=== PATIENT | female | born 1950 | race Caucasian/White ===

== ENCOUNTER 2023-08-07 09:56 | Outpatient (CLI) | payer MEDICARE, OTHER, SELFPAY ==
--- NOTE | 2023-08-07 | ECG_ITS ---
Measurements Intervals [place] Rate: 54 P: 39 DC: 187 QRS: -17 QRSD: 89 T: 6 QT: 399 QTc: 381 Interpretive Statements SINUS BRADYCARDIA LOW QRS VOLTAGE IN PRECORDIAL LEADS INFERIOR INFARCT, AGE INDETERMINATE ABNORMAL ECG NO PREVIOUS ECG AVAILABLE FOR COMPARISON Electronically Signed On 08-07-2023 11:22:15 CDT by Sumit Braswell D.O.
[2023-08-07 10:45] LABS: Anion Gap 9 mmol/L (8-16); Blood Urea Nitrogen 26 mg/dL (7-17); Calcium 9.2 mg/dL (8.4-10.2); Carbon Dioxide 26 mmol/L (22-30); Chloride 102 mmol/L (98-107); Estimated Glomerular Filt Rate > 60; Glucose 149 mg/dL (65-110); Potassium 4.6 mmol/L (3.4-5.0); Sodium 137 mmol/L (137-145)
== END 2023-08-07 09:57 | disposition home or self-care (01) ==
PROVIDERS: PCP Orthopaedic Surgery; Visit Provider Orthopaedic Surgery
DX: M25.561 Pain in right knee (principal)
CPT/HCPCS: 36415; 80048; 93005

== ENCOUNTER 2025-07-30 09:34 | Outpatient (CLI) | payer MEDICARE, SELFPAY ==
--- OUTSIDE RECORDS SUMMARY | 2025-07-30 10:15 | XMS_ITS | Clinical Summary ---
Author Organization [facility] [employer] Address [address] [facility] [place] [address] Care Team Providers Care Corporate Director Name Role Phone Dusty Dunham MD Primary Care Provider [phone] Source Comments [facility],non-owned Affiliates and Associated Physician Practices is amultiple site organization consisting of ambulatory clinics and hospital sitesin [place], [place], [place] and [place]. This disclosure is being madepursuant to the Care Everywhere program and may not contain all information available regarding this patient. Last updated 18.[facility] Allergies Active Allergy Reactions Criticality Noted Date Comments Iodine Rash Medium 12/31/2018 Penicillins Rash Medium 12/31/2018 Medications * Be aware that medications may not be up to date on this document. Alwaysverify current medications with the patient. metoprolol tartrate (LOPRESSOR) 100 MG tablet metoprolol tartrate 100 mg tablet TAKE 1 TABLET BY MOUTH EVERY DAY DIRECTED Active lisinopril (PRINIVIL; ZESTRIL) 20 MG tablet Take 1 (one) tablet by mouth once daily 2 Active metFORMIN (GLUCOPHAGE) 1000 MG tablet metformin 1,000 mg tablet TAKE 1 TABLET BY MOUTH TWICE A DAY Active aspirin EC (ECOTRIN) 81 MG tablet Take 1 (one) tablet by mouth once daily Active Calcium Carb-Cholecalci ferol 500-400 MG-UNIT Take 1 tablet by mouth once daily Active multivitamins (ONE A DAY) capsule Take 1 (one) capsule by mouth once daily Active Loratadine 10 MG Active atorvastatin (Lipitor) 10 MG tablet Take 1 (one) tablet by mouth once daily 3 Active olmesartan-hydr oCHLOROthiazide (Benicar HCT) 40-25 MG tablet Take 1 (one) tablet by mouth once daily Active amLODIPine (Norvasc) 5 MG tablet Take 1 (one) tablet by mouth once daily Active tacrolimus (Protopic) 0.1 % ointment Apply to eyelids two times daily. 30 days supply. 60 g 1 5 Active Active Problems No known active problems Encounters Date Type Department Care Team Description 06/17/2025 Telephone [facility] - Dermatology [address] [place] [address] None, Physician Medication Issue from Last 3 Months Immunizations Immunization Administration Dates Next Due Covid Moderna primary monova lent 12+ yr 0.5mL 01/18/2021 Covid Pfizer primary monoval ent 12+ yr 0.3mL Purple cap 01/18/2021,12/16/2020 INFLUENZA VACCINE 08/02/2021,07/29/2018 INFLUENZA VACCINE, HIGH-DOSE , QUADR. (FLUZONE HIGH-DOSE QUADRIVALENT; 65Y+), 0.7 ML (HD-IIV4) 07/19/2020,08/23/2019,07/31/2014,2011 MODERNA SARS-COV-2 COVID-19 VACCINE 0.25ML 10/07/2021 PNEUMOCOCCAL PPSV23 06/26/2014 Pneumococcal Pcv13 Conj 10/29/2015 ZOSTER HISTORIC VACCINE 04/09/2020,11/07/2019 Social History Tobacco Use Types Packs/Day Years Used Date Smoking Tobacco: Never Smokeless Tobacco: Never Comments Unknown Sex and Gender Information Value Date Recorded Sex Assigned at Female 04/17/2023 12:45 PM CDT Legal Sex Female 9:29 AM CDT Gender Identity Female 04/17/2023 12:45 PM CDT Sexual Orientation Straight 04/17/2023 12 :45 PM CDT Plan of Treatment Upcoming Encounters Date Type Department Care Team (Late Contact Info) Description 05/07/2026 8:40 AM CDT Office Visit [facility] - Dermatology [address] [place] [address] Yaquelin Lorenzo MD [address] [place] [address] [address] [place] [address] Health Maintenance Due Date Last Done Comments COLOGUARD (AGES 45-75) - COLON CA SCREENING 1950 COLON MONITORING 1950 COLONOSCOPY - COLON CA SCREENING 1950 CT COLONOGRAPHY - COLON CA SCREENING 1950 Colorectal Cancer Screening 1950 FIT - COLON CA SCREENING 1950 FLEX SIG - COLON CA SCREENING 1950 MEDICARE AWV 12 MONTHS 1950 HEPATITIS C SCREENING 02/19/1968 DTAP/TDAP/TD VACCINES (1 - Tdap) 1969 ZOSTER VACCINE (1 of 2) 02/24/2000 04/09/2020, 11/07 PNEUMOCOCCAL VACCINE 50+ (3 of 3 - PCV20 or PCV21) 10/29/2020 10/29/2015, 06/26/2014 DEPRESSION SCREENING 11/12/2024 Respiratory Syncytial Virus (RSV) Vaccine Pt: or over 60 yrs (1 - 1-dose 75+ series) 2025 COVID-19 VACCINE ( - season) 2025 10/07/2021, 01/18/2021, 01/18/2021, Additional history exists INFLUENZA VACCINE (#1) 2025 , 07/19/2022, 08/02/2021, Additional history exists MAMMOGRAM 09/15/2026 09/15/2024, 02/2024, 09/12/2023, Additional history exists BONE DENSITY TESTING Completed 09/15/2024, 06/26/2022, 11/26/2019, Additional history exists HEPATITIS B VACCINE Aged Out No longe r eligible based on patient's age to complete this topic HIB VACCINE Aged Out No longer eligi ble based on patient's age to complete this topic HPV VACCINE Aged Out No longer eligi ble based on patient's age to complete this topic MENINGOCOCCAL (Group B) VACCINE SHARED DECISION-MAKING Aged Out No longer eligible based on patient's age to complete this topic MENINGOCOCCAL GROUPS A/C/Y/W VACCINE Aged Out No longer eligible based on patient's age to complete this topic Insurance MEDICARE MEDICARE Care Teams Corporate Director Relationship Specialty Start Date End Date Dusty Dunham MD [address] [id number] PCP - General 04/07/22
--- OUTSIDE RECORDS SUMMARY | 2025-07-30 10:15 | XMS_ITS | Clinical Summary ---
Author Organization [facility] Address [address] [place] [address] Care Team Providers Care Soaking Tank Worker Name Role Phone Dusty Dunham MD Primary Care Provider [phone] Allergies Active Allergy Reactions Criticality Noted Date Comments Iodine Rash Medium 12/31/2018 Penicillins Rash Medium 12/31/2018 Medications lisinopril (PRINIVIL,ZESTR IL) 20 mg tablet 12/02/2018 Active metFORMIN (GLUCOPHAGE) 1,000 mg tablet 1 tablet (1,000 mg total) 2 (two) times a day with meals 12/02/2018 Active metoprolol (LOPRESSOR) 100 mg tablet Take 1 tablet (100 mg total) by mouth daily 12/02/2018 Active loratadine 10 mg capsule Take by mouth. Active aspirin 81 mg tablet Take 1 tablet (81 mg total) by mouth daily Active multivitamin capsule Take 1 capsule by mouth daily Active calcium carbonate-vitam in D3 500 mg(1,250mg) -400 unit chewable tablet Take 1 tablet by mouth daily Active atorvastatin (LIPITOR) 10 mg tablet Take 1 tablet (10 mg total) by mouth daily Active amLODIPine (NORVASC) 5 mg tablet Take 1 tablet (5 mg total) by mouth nightly Active olmesartan-hydr ochlorothiazide (BENICAR HCT) 40-25 mg per tablet Take 1 tablet by mouth daily Active meloxicam (MOBIC) 7.5 mg tablet Take 1 tablet (7.5 mg total) by mouth daily Active Active Problems Problem Noted Date Diagnosed Date Tear of medial meniscus of knee 07/12/2023 Abnormal liver function tests 05/24/2022 Vitamin D deficiency 05/18/2021 Malignant tumor of breast 11/25/2019 Essential hypertension 11/25/2019 Diabetes mellitus 11/25/2019 Encounters Date Type Department Care Team Description 07/28/2025 8:30 AM CDT - 07/28/2025 9:00 AM CDT Surgery [facility] [address] [place] [address] Angelic Booth MD COLONOSCOPY 07/28/2025 8:20 AM CDT Anesthesia Event [facility] [address] [place] [address] Umu Wheat MD 07/28/2025 7:02 AM CDT - 07/28/2025 9:45 AM CDT Hospital Encounter [facility] [address] [place] [id number] Angelic Booth MD Discharge Disposition: Discharge to home or self care from Last 3 Months Surgical History Surgery Date Site/Laterality Comments TONSILLECTOMY 11/12/1953 - 11/11/1954 HYSTERECTOMY 11/12/1993 - 11/11/1994 MASTECTOMY, PARTIAL 11/12/2001 - 11/11/2002 Right w/ lymph nodes removed CATARACT EXTRACTION 11/12/2017 - 11/11/2018 BREAST BIOPSY ANKLE FRACTURE SURGERY Left WISDOM TOOTH EXTRACTION COLONOSCOPY COLONOSCOPY 07/28/2025 Medical History Medical History Date Comments Breast cancer in female (HCC) 2001 Diabetes mellitus (HCC) Colon polyp Hypertension Diverticulosis Type 2 diabetes mellitus Cataract Family History Medical History Relation Name Comments Diabetes Brother Gabriel Mix Heart disease Father Anish Mix Hypertension Mother Soraya Mix Relation Name Status Comments Brother Gabriel Mix Father Anish Mix Mother Soraya Mix Social History Tobacco Use Types Packs/Day Years Used Date Smoking Tobacco: Never Cigarettes Smokeless Tobacco: Never Tobacco Cessation:Counseling Given: Not Answered Alcohol Use Standard Drinks/Week Comments Yes 1 (1 standard drink = 0.6 oz pur e alcohol) AUDIT-C Answer Date Recorded Q1: How often do you have a drink containing alc ohol? 2-4 times a month 07/09/2025 Q2: How many drinks containi ng alcohol do you have on a typical day when you are drinking? 1 or 2 07/09/2025 Q3: How often do you have si x or more drinks on one occasion? Never 07/09/2025 Personal Safety Answer Date Recorded Have you ever been in or are you currently in a harmful physical or emotional relationship or is someone making you feel afraid or unsafe? Denies 07/28/2025 Comments No Sex and Gender Information Value Date Recorded Sex Assigned at Not on file Legal Sex Female 2:35 AM ADMINISTRATIVE OFFICE MANAGER Gender Identity Female 08/21/2022 11:11 AM CDT Sexual Orientation Not on file Obstetrics History Para Term AB IAB SAB Ectopic Multiple Livin g Live Births 0 0 0 0 0 0 0 0 0 0 0 Last Filed Vital Signs Vital Sign Reading Time Taken Comments Blood Pressure 118/60 07/28/2025 9:10 AM CDT Pulse 58 07/28/2025 9:10 AM CDT Temperature 36.3 C (97.4 F) 07/28/2025 8:50 AM CDT Respiratory Rate 14 07/28/2025 9:10 AM CDT Oxygen Saturation 100% 07/28/2025 9:10 AM CDT Inhaled Oxygen Concentration - - Weight 64.4 kg (142 lb) 07/28/2025 7:30 AM CDT Height 157.5 cm (5' 2) 06/11/2023 11:26 AM CDT Body Mass Index 25.97 06/11/2023 11:26 AM CDT Plan of Treatment Health Maintenance Due Date Last Done Comments Albumin Creatinine Ratio, Urine 1950 Depression Screening 1950 Hemoglobin A1C 1950 Hepatitis C Screening 1950 eGFR 1950 Dilated Eye Exam 1950 Foot Exam 1950 Lipid Panel 1950 DTaP/Tdap/Td Vaccine (1 - Tdap) 1961 Hepatitis B Screening 02/24/1968 Well Visit 65+ 2015 Zoster Vaccine (2 of 3) 06/04/2020 04/09/20 20, 11/07/2019, 07/31/2014 Pneumococcal vaccine 65+ (3 of 3 - PCV20 or PCV21) 10/29/2020 10/29/2015, 06/26/2014 Fall Risk Assessment 07/12/2023 07/12/2022 Covid-19 Vaccine (4 - 2024-2 6 season) 2025 10/07/2021, 01/18/2021, 01/18/2021, Additional history exists Influenza Vaccine (#1) 2025 , 07/20/2022, 08/02/2021, Additional history exists Osteoporosis Screening-Bone Density Scan 09/15/2026 09/15/2024, 06/26/2022, 11/26/2019, Additional history exists Colon Cancer Screening-Colonoscopy 07/28/2035 07/28/2025 Breast Cancer Screening-Mammogram Discontinued 09/15/2024, 09/12/2023, 08/17/2022, Additional history exists Colon Cancer Screening-CT Colonography Discontinued 07/28/2025 Colon Cancer Screening-DNA Stool Discontinued 07/28/20 Colon Cancer Screening-FIT Discontinued 07/28/2025 Colon Cancer Screening-Sigmoidoscopy Discontinued 07/28/2025 Medical Devices Implanted Type Area [employer]ings Device Identifier Shelf Expiration Date Model / Serial / Lot Screw Left: Ankle Procedures Procedure Name Priority Date/Time Associated Diagnosis Comments POCT GLUCOSE DEVICE Routine 07/28/2025 8 :59 AM CDT COLONOSCOPY 07/28/2025 8:19 AM CDT POC BLOOD GAS AND CHEMISTRIES, VENOUS Routine 07/28/2025 8:11 AM CDT SCREENING MAMMOGRAM BILATERAL W OMID Schedule Routine, Read Routine (OP Routine) 09/15/2024 10:56 AM ADMINISTRATIVE OFFICE MANAGER Screening mammogram, encounter for DEXA AXIAL SKELETON BONE DENSITY 1 OR MORE SITES Schedule Routine, Read Routine (OP Routine) 09/15/2024 10:50 AM ADMINISTRATIVE OFFICE MANAGER Asymptomatic menopausal state from Last 3 Months or Most Recently Relevant to Health Maintenance Results * POCT glucose (07/28/2025 8:59 AM CDT) Glucose, POC 132 70 - 199 mg/dL Blood 07/28/2025 8:59 AM CDT 07/28/2025 8:59 AM CDT us Angelic Booth MD LAB POCT ORDERABLES - DEVICE Fin al Result [place] [address] [facility] Department [place] [address] * Colonoscopy (07/28/2025 8:19 AM CDT) Anatomical Region Laterality Modality Other Narrative Procedure Note Angelic Booth MD - 07/28/2025 8:19 AM CDT [facility] GI ENDOSCOPY Patient Name: Ayde Ren Procedure Date: 07/28/2025 8:19 AM Date of : 1950 Admit Type: Outpatient Age: 75 Gender: Female Attending MD: Angelic Booth M.D., [id number] Room: [facility] ENDOSCOPY ROOM 05 Note Status: Finalized Procedure: Colonoscopy Indications: High risk colon cancer surveillance: Personalhistory of adenomatous colonic polyps Referring MD: Providers: Angelic Booth M.D. Medicines: See the Anesthesia note for documentation of the administered medications Complications: No immediate complications. Estimated Blood Loss: Estimated blood loss was minimal. Procedure: The benefits, risks and alternatives of theprocedure and sedation were discussed and informed consentwas obtained. All questions were answered. Please referto the signed informed consent document in the medical record. The scope was passed under direct vision.The [id number] colonoscope was introduced through theanus and advanced to the cecum, identified byappendiceal orifice and ileocecal valve. The colonoscopy was performed without difficulty. The patient tolerated the procedure well. The quality of the bowel preparation was adequate. Findings: The perianal and digital rectal examinations were normal. Diverticula were found in the colon. Internal hemorrhoids were found during retroflexion. The hemorrhoids were small. Impression: - Diverticulosis. - Internal hemorrhoids. - No specimens collected. Recommendation: - Repeat colonoscopy in 5 years for surveillance. - High fiber diet indefinitely. Angelic Booth M.D. Angelic Booth M.D. 07/28/2025 8:49:35 AM . Number of Addenda: 0 Note Initiated On: 07/28/2025 8:19 AM Recognized by the [employer] for promoting quality in endoscopy us Angelic Booth MD ENDOSCOPY PROCEDURES Final Resul t * (ABNORMAL) POC Blood Gas and Chemistries, Venous - (07/28/2025 8:11 AM CDT) pH,yeimy POC 7.32 7.32 - 7.43 pCO2, yeimy POC 38(L) 40 - 50 mmHg [facility] pO2,yeimy POC 43 mmHg [facility] Comment: Interpretive Data No reference range established. Current interpretive data was last revised 2020. HCO3, yeimy (Calc) POC 20 20 - 30 mmol/L [facility] Base excess, yeimy POC -6 mmol/L [facility] Comment: Interpretive Data No reference range established. Current interpretive data was last revised 2020. Hemoglobin, yeimy POC 12.9 11.9 - 15.5 g/dL [facility] Hematocrit, yeimy POC 38.0 35.6 - 45.5 % [facility] Sodium, yeimy POC 136 135 - 145 mmol/L [facility] Potassium, yeimy POC 4.8 3.3 - 4.9 mmol/L [facility] Comment: Interpretive Data This method is not able to assess for hemolysis, which may falsely increase potassium concentrations. If further testing is needed to evaluate this result, consider in-laboratory plasma potassium. Current Interpretive Data was last revised on 2022. Glucose, yeimy POC 162 70 - 199 mg/dL [facility] Ionized Calcium, yeimy POC 5.40(H) 4.50 - 5.10 mg/dL [facility] Blood 07/28/2025 8:11 AM CDT 07/28/2025 8:11 AM CDT us Angelic Booth MD LAB POCT ORDERABLES - DEVICE Fin al Result [place] [id number] [facility] Department [place] [address] * Screening Mammogram Bilateral W Omid (09/15/2024 10:56 AM ADMINISTRATIVE OFFICE MANAGER) Anatomical Region Laterality Modality Breast Bilateral Mammography Impressions 09/15/2024 12:01 PM ADMINISTRATIVE OFFICE MANAGER BI-RADS ATLAS category (overall): 2 - Benign There is no mammographic evidence of malignancy. A 1 year screening mammogram is recommended. The patient has been or will be contacted. We recommend annual screening mammography for women at average risk of breast cancer beginning at age 40, based on guidelines of the [employer] (ACR Practice Parameter for the Performance of Screening and Diagnostic Mammography) and [employer]. For women with and elevated risk of breast cancer, please refer to the ACR Practice Parameter for specific screening recommendations. The patient will be entered into a reminder system with a target due date of 1 year for her next screening exam. Narrative 09/15/2024 12:01 PM ADMINISTRATIVE OFFICE MANAGER Screening Mammogram Bilateral W Omid: 09/15/24 The study was acquired using full field digital technology and interpreted from soft copy. 2D digital mammographic views, as well as 3D digital tomosynthesis were performed in the CC and MLO projections. CLINICAL: Screening mammogram, encounter for Medical history includes breast cancer. No known family history of breast cancer. COMPARISONS: 09/12/2023 Screening Mammogram Bilateral W Omid 08/17/2022 Screening Mammogram Bilateral W Omid 08/08/2021 Screening Mammogram Bilateral W Omid BREAST TISSUE: The breasts are heterogeneously dense, which may obscure small masses. FINDINGS: There are stable post-operative findings in the right breast. There are benign bilateral breast calcifications. There is no new suspicious finding in either breast on mammogram. 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 LEFT HIP: Total BMD is 1.068 g/cm2 T-score is 1.0 This is increased in comparison to prior exam which is not statistically significant. Femoral neck BMD is 0.876 g/cm2 T-score is 0.2 FRAX: FRAX not reported due to T-scores of hip, femoral neck and/or spine being at or above -1.0 (Normal). IMPRESSION: Normal bone mass. REFERENCE: Bone mineral density: T-Score: Normal (T-score above or = -1.0) Low bone mass (T-score between -1.0 and -2.5) replaces the previously used term osteopenia Osteoporosis (T-score = or below -2.5) Z-Score: Within the expected range for age (Z-score above -2.0) Below the expected range for age (Z-score is -2.0 or below) Please see below follow up recommendations. Medical evaluation for secondary causes of low bone mineral density may be appropriate. FRAX is a World Health Organization validated fracture risk assessment tool that calculates a person's 10 year probability of a major osteoporosis related fracture and hip fracture. According to the National Osteoporosis Foundation guidelines, postmenopausal women and men age 50 or older with low bone mass and a 10 year probability of a major osteoporosis related fracture = or greater than 20% or a 10 year probability of a hip fracture = or greater than 3% should be considered for pharmacological treatment for the prevention of osteoporosis. For further information, including treatment recommendations, please refer to the 2019 ISCD Official Positions (http://www.iscd.org) and the NOF's Clinician's Guide to Prevention and Treatment of Osteoporosis (http://www.nof.org/professionals/clinical-guidelines) THIS IS AN ELECTRONICALLY VERIFIED FINAL REPORT 09/15/2024 4:32 PM - Electronically signed by Gabriel Beltran M.D. 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 LEFT HIP: Total BMD is 1.068 g/cm2 T-score is 1.0 This is increased in comparison to prior exam which is not statistically significant. Femoral neck BMD is 0.876 g/cm2 T-score is 0.2 FRAX: FRAX not reported due to T-scores of hip, femoral neck and/or spine beingat or above -1.0 (Normal). IMPRESSION: Normal bone mass. REFERENCE: Bone mineral density: T-Score: Normal (T-score above or = -1.0) Low bone mass (T-score between -1.0 and -2.5) replaces thepreviously used term osteopenia Osteoporosis (T-score = or below -2.5) Z-Score: Within the expected range for age (Z-score above -2.0) Below the expected range for age (Z-score is -2.0 or below) Please see below follow up recommendations. Medical evaluation forsecondary causes of low bone mineral density may be appropriate. FRAX is a World Health Organization validated fracture risk assessmenttool that calculates a person's 10 year probability of a major osteoporosisrelated fracture and hip fracture. According to the National OsteoporosisFoundation guidelines, postmenopausal women and men age 50 or older with low bonemass and a 10 year probability of a major osteoporosis related fracture = or greater than 20% or a 10 year probability of a hip fracture = or greaterthan 3% should be considered for pharmacological treatment for the preventionof osteoporosis. For further information, including treatment recommendations, please referto the 2019 ISCD Official Positions (http://www.iscd.org) and the NOF's Clinician's Guide to Prevention and Treatment of Osteoporosis (http://www.nof.org/professionals/clinical-guidelines) THIS IS AN ELECTRONICALLY VERIFIED FINAL REPORT 09/15/2024 4:32 PM - Electronically signed by Gabriel GASCA: ELO Report ID: [id number] Reading Location: [place] [address] us Dusty Dunham MD IM DXA PROCEDURES Final Re sult from Last 3 Months or Most Recently Relevant to Health Maintenance Insurance MEDICARE [facility] MEDICARE SUPPLEMENT MEDICARE [place] MEDICARE SUPPLEMENT MEDICARE [place] [facility] [place] Care Teams Soaking Tank Worker Relationship Specialty Start Date End Date Dusty Dunham MD PCP - General Internal Medicine 12/23/18
[2025-07-30 11:14] LABS: Anion Gap 11 mmol/L (4-12); Blood Urea Nitrogen 37 mg/dL (7-17); Calcium 9.6 mg/dL (8.4-10.2); Carbon Dioxide 21 mmol/L (22-30); Chloride 106 mmol/L (98-107); Estimated Glomerular Filt Rate 53; Glucose 138 mg/dL (65-110); Potassium 5.4 mmol/L (3.4-5.0); Sodium 138 mmol/L (137-145)
== END 2025-07-30 09:35 | disposition home or self-care (01) ==
PROVIDERS: PCP Orthopaedic Surgery; Visit Provider Anesthesiology
DX: N28.9 Disorder of kidney and ureter, unspecified (principal)
CPT/HCPCS: 36415; 80048